=== PATIENT | female | born 1975 | race Caucasian/White ===

== ENCOUNTER → 2017-01-25 | Outpatient (CLI) | payer BC ==
--- NOTE | 2017-01-25 14:24 | MAMMOGRAPHY REPORT ---
UNILATERAL RIGHT DIGITAL DIAGNOSTIC MAMMOGRAM TOMOSYNTHESIS WITH CAD AND TARGETED RIGHT ULTRASOUND: 1 CLINICAL HISTORY: 41 year-old woman who reports approximately 2-1/2 years of right axillary pain. Po ssible millet seed-sized bump as well. No skin erythema or thickening. No family history of breast cancer. Patient had a baseline mammogram on 07/27/2016 which was interpreted as negative. TECHNIQUE: Right MLO and ax CC L 2-D and tomosynthesis images were obtained. Current study was also evaluated with a Computer Aided Detection (CAD) system. COMPARISON: No prior exams were available for comparison. BREAST COMPOSITION: The tissue of the right breast is heterogeneously dense, which may obscure small masses. FINDINGS: A square shaped pain marker overlies the skin of the right axillary tail/inferior axilla, d enoting the area of pain pointed out by the patient. There are a few morphologically normal lymph no abdoulaye and accessory breast tissue extending into the right axilla. No evidence of a suspicious mass, f ocal architectural distortion or suspicious calcifications. There are a few grouped benign-appearing punctate microcalcifications in the right breast. Targeted ultrasound was performed in the area of pain pointed out by the patient, and also tiny bump. There is accessory fibroglandular tissue in the right axillary tail/inferior axilla in the area of pain described by the patient. Several morphologically normal lymph nodes are seen in the right axil la and axillary tail. No evidence of a suspicious solid or cystic mass or suspicious adenopathy. IMPRESSION: ACR BI-RADS CATEGORY 2: BENIGN, TARGETED ULTRASOUND ACR BI-RADS CATEGORY 2: BENIGN 1. There is accessory breast tissue in the right axillary tail and inferior axilla, correlating with the area of pain pointed out by the patient. There is no evidence of a suspicious solid or cystic m ass or suspicious adenopathy. Continued clinical monitoring and clinical follow-up is recommended, a s biopsy of a clinically suspicious mass should not be precluded by negative imaging. 2. Otherwise, recommend return to annual screening mammography schedule, due in July 2017. These results and recommendations were discussed with the patient at the time of the exam. Approximately 10% of breast cancers are not detected with mammography. A negative mammographic report should not delay biopsy if a clinically suggestive mass is present. Ora Gorman M.D. ay/:01/25/2017 09:39:31 Strip Catcher: Sonya Chatman RT(R)(M), [facility] letter sent: Normal /2 BI-RADS Code: ACR BI-RADS Category 2: Benign Ultrasound BI-RADS: ACR BI-RADS Category 2: Benign
== END | disposition home or self-care (01) ==
LOC: C.MAMM 08:51
PROVIDERS: ATTEND Nurse Practitioner Family
DX: N64.4 Mastodynia (principal)